=== PATIENT | male | born 1960 | race Caucasian/White ===

== ENCOUNTER 2019-01-17 05:00 | Emergency (ER) | payer MEDICAID ==
[~2019-01-17] VITALS: Ht 185.4 cm; Wt 81.8 kg
[~2019-01-17 05:00] MED LIST: CYCLOBENZAPRINE10 MG PO; DILAUDID2 MG PO; DILAUDID4 MG PO; DILAUDID8 MG PO; ENULOSE10 G/15 ML PO; MS CONTIN100 MG PO; XANAX2 MG PO
[2019-01-17 05:03] VITALS: Ht 185.4 cm; Wt 81.8 kg
[2019-01-17] MEDS ORDERED: ULTRAM50 MG PO (06:44)
[2019-01-17] MEDS ORDERED: KEFLEX500 MG PO (06:46)
[2019-01-17 07:20] VITALS: BP 164/93
== END 2019-01-17 07:21 | disposition home or self-care (01) ==
LOC: D.ER 05:00
DX: S01.111A Laceration without foreign body of right eyelid and periocular area, initial encounter (principal); W05.0XXA Fall from non-moving wheelchair, initial encounter; Y93.84 Activity, sleeping; Y92.89 Other specified places as the place of occurrence of the external cause; S09.90XA Unspecified injury of head, initial encounter

== ENCOUNTER 2020-10-30 17:12 | Inpatient (IN) | payer MEDICAID ==
[~2020-10-30] VITALS: Ht 185.4 cm; Wt 100.9 kg
[~2020-10-30 17:12] MED LIST changes: +KEFLEX500 MG PO; +ULTRAM50 MG PO
[2020-10-30 17:33] LABS: BASOPHILS 0.5 % (0-2); HEMATOCRIT 28.9 % (42.0-54.0); HEMOGLOBIN 9.6 g/dL (13.5-17.5); LYMPHOCYTES 8.2 % (15-50); MCHC 33.1 g/dL (31.0-37.0); MCV 87.4 fL (80.0-100.0); MEAN PLATELET VOLUME 8.9 fL (7.4-10.4); MONOCYTES 8.7 % (2-11); NEUTROPHILS 81.6 % (40-80); RBC 3.31 10x6/uL (4.20-6.10); RDW 14.8 % (11.5-14.5); WBC 12.9 10x3/uL (4.8-10.8)
[2020-10-30 17:35] LABS: PLATELET COUNT 250 10x3/uL (130-400)
[2020-10-30 17:51] VITALS: Ht 185.4 cm; Wt 100.9 kg
[2020-10-30 18:14] LABS: ANION GAP 8.1 mmol/L (8-16); CALCIUM 8.6 mg/dL (8.5-10.1); CARBON DIOXIDE 27.2 mmol/L (21.0-32.0); CREATININE - SERUM 1.1 mg/dL (0.6-1.3); POTASSIUM - SERUM 3.3 mmol/L (3.5-5.1)
[2020-10-30 18:26] LABS: ALBUMIN 2.3 g/dL (3.4-5.0); BILIRUBIN - TOTAL 0.74 mg/dL (0.2-1.3); C-REACTIVE PROTEIN 26.1 mg/dL (0.0-0.9); MAGNESIUM - SERUM 2.3 mg/dL (1.8-2.4); PROTEIN - SERUM 8.8 g/dL (6.4-8.2)
[2020-10-30 18:30] VITALS: BP 148/82
[2020-10-30 18:31] LABS: UDS - AMPHET POSITIVE QUAL (NEGATIVE); UDS - BARB NEGATIVE QUAL (NEGATIVE); UDS - BENZO NEGATIVE QUAL (NEGATIVE); UDS - COCAINE NEGATIVE QUAL (NEGATIVE); UDS - OPIATE NEGATIVE QUAL (NEGATIVE); UDS - PCP NEGATIVE QUAL (NEGATIVE); UDS - THC POSITIVE QUAL (NEGATIVE)
[2020-10-30 18:45] LABS: BACTERIA MANY HPF (NONE SEEN); BILIRUBIN NEGATIVE (NEGATIVE); KETONE NEGATIVE (NEGATIVE); NITRITE POSITIVE (NEGATIVE); UROBILINOGEN NORMAL mg/dL (< 2); WHITE CELLS - URINE >50 HPF (0-1)
[2020-10-30 18:47] LABS: APTT 31.9 SECONDS (22.8-39.4); INR 1.23 (0.85-1.17); PROTIME 14.4 SECONDS (11.6-15.0)
[2020-10-30 19:30] VITALS: BP 156/82
--- NOTE | 2020-10-30 19:53 | NUR ---
PT ARRIVED TO THIS ER WITH AN INDWELLING CATHETER. PT STATED HE PLACED THIS CATHETER HIMSELF APPROX 1 MONTH AGO. PT STATED HE HAS BEEN SELF-CATHING SINCE 2013 AND NORMALLY CHANGES THE CATHETER OUT EVERY 3 WEEKS BUT HIS SUPPLIES WERE LOST. CATHETER DRAINING TERRY URINE WITHOUT DIFFICULTY.
--- NOTE | 2020-10-30 22:15 | NUR ---
PATIENT UPSET AND THREATENING TO CALL MEDIA BECAUSE HE IS UNABLE TO KEEP SERVICE DOG AT BEDSIDE. SERVICE DOG URINATED IN FLOOR. PATIENT DOES NOT HAVE ANYONE TO FUR DRUMMER DOG. PATIENT WITH ULCERS OF B [facility] FROM [facility]. HOUSE SUPERVISER NOTIFIED FOR CLARIFICATION. DOG UNABLE TO STAY BECAUSE PATIENT IS UNABLE TO GET OOB TO CARE FOR DOG. PATIENT HAS LEG ULCERS. AND DOG HAS NOT BEEN EVALUATED BY INFECTION CONTROL. PATIENT IS LEAVING AMA AND WILL HAVE TO CALL OWN RIDE SUCH AMBULANCE OR FRIEND FOR TRANSPORT
--- NOTE | 2020-10-30 22:30 | NUR ---
WAS BROUGHT TO MY ATTENTION THAT PATIENT HAD A SERVICE DOG, PRODUCTION TECHNICIAN NOTIFED AND I WAS INFORMED THAT UNDER HOSPITAL POLICY WE DO NOT ALLOW EMOTIONAL SUPPORT ANIMALS, PATIENT DID HAVE SERVICE CARD HOWEVER THE DOG WAS NOT AAA/AAT REGISTERED AND WAS NEEDED FOR PTSD, AND SHOTS WERE NOT UPTO DATE PER CARD. I OFFERED TO CALL ANYONE TO COME AND PICKUP THE DOG, OR IF WE NEEDED TO TAKE THE DOG TO A SAVE PLACE WE WOULD, PATIENT REFUSED AND WAS VERY UPSET, STATING HE WAS GETTING A CHEMICAL STRENGTH TESTER AND WAS GOING TO CONTACT THE TV STATIONS. HE CHOOSE TO LEAVE A.
[2020-10-30 23:12] VITALS: BP 152/82
--- NOTE | 2020-10-31 00:14 | NUR ---
PATIENT LEAVING AMA. STATES I CANT STAY WITHOUT MY DOG. MY DOG CANT BE WITHOUT ME EITHER. PATIENT SPOKE WITH LIFENET, CHARGE NURSE AND LIFENET PROJECT MANAGEMENT ANALYST. NEVILLE WITH DR AVELAR NOTIFIED PATIENT AMA. TAXI CALLED. EMS/ LOCAL FIRE DEPT TO ASSIST WITH HELPING PATIENT GET IN THE HOUSE
--- NOTE | 2020-10-31 00:18 | NUR ---
PATIENT SENT HOME WITH CATHETER SUPPLIES X 1 TO GET BY UNTIL HE RECIEVES NEW SUPPLIES AT HOME
[2020-10-31 00:22] VITALS: BP 166/801
== END 2020-10-30 22:34 | disposition left against medical advice (07) | DRG 603 ==
LOC: D.ER 17:12 → D.M2 19:22
PROVIDERS: Family Medicine; ADMIT Family Medicine Adult Medicine; ATTEND Family Medicine Adult Medicine
DX: L03.116 Cellulitis of left lower limb (principal); I87.8 Other specified disorders of veins; I10 Essential (primary) hypertension; J44.9 Chronic obstructive pulmonary disease, unspecified